=== PATIENT | female | born 1965 | race Caucasian/White ===

== ENCOUNTER 2017-03-18 20:45 | Emergency (ER) | payer OTHER ==
--- NOTE | 2017-03-18 22:58 | RAD ---
INDICATION: Right ankle injury COMPARISON: December 08, 2009 TECHNIQUE: AP, lateral, and oblique views were obtained. FINDINGS: There is no acute fracture. The ankle mortise is intact. There is lateral soft tissue swelling and there are is large plantar calcaneal spur. IMPRESSION: NO ACUTE FRACTURE. LATERAL SOFT TISSUE SWELLING. HEEL SPUR.
--- NOTE | 2017-03-18 23:33 | ED ---
I, Oh,Ja, scribed for Medhat Cabral MD on 03/18/17 at 2333 . Lower Extremity - HPI Summary HPI Summary: This 52 y/o female presents to ED for RLE ankle pain after stepping on a rock and rolling her ankle this afternoon. Positive swelling. Pt states that she heard snapping sound and decided to come into ED when she became concerned about possible fracture. Pt states that she was able to bear some weight with difficulty. Pt was updated with negative ankle X-ray. Plan of care involving splint and discharge is discussed, and pt is at this moment agreeable. - History of Current Complaint Chief Complaint: EDExtremityLower Stated Complaint: RIGHT ANKLE INJURY Time Seen by Provider: 03/18/17 23:24 Hx Obtained From: Patient, Medical Records Hx Last Menstrual Period: 4 MOS AGO Mechanism Of Injury: Blunt Trauma, Twisted Onset of Pain: Immediate Pain Intensity: 5 Pain Scale Used: 0-10 Numeric Location: Is Discrete @ - RLE ankle Character Of Pain: Dull Associated Signs And Symptoms: Positive: Swelling Aggravating Factor(s): Standing Alleviating Factor(s): Rest - Allergies/Home Medications Allergies/Adverse Reactions: Allergies Allergy/AdvReac Type Severity Reaction Status Date / Time Codeine Allergy Severe Hives Verified 02/11/16 19:19 Propoxyphene Allergy Unknown Unknown Verified 02/11/16 19:19 Reaction Details Aspirin AdvReac Severe INTERFERES Verified 02/11/16 19:19 WITH EPILEPSY MEDS PMH/Surg Hx/FS Hx/Imm Hx Endocrine/Hematology History: Reports: Hx Thyroid Disease Cardiovascular History: Denies: Hx Pacemaker/ICD Sensory History: Denies: Hx Hearing Aid Psychiatric History: Reports: Hx Panic Disorder - TAKES EFFEXOR - Surgical History Surgery Procedure, Year, and Place: R SHOULDER ROTATOR CUFF SURGERY 2008,LEFT KNEE SURGERY EARLY , PHENOBARB DEPOSITS REMOVED FROM FINGERS Infectious Disease History: No Infectious Disease History: Denies: Traveled Outside the [place] in Last 30 Days - Family History Known Family History: Positive: Cardiac Disease, Hypertension - Social History Alcohol Use: None Hx Substance Use: No Substance Use Type: Reports: None Hx Tobacco Use: No Smoking Status (MU): Never Smoked Tobacco Review of Systems Negative: Fever Positive: Edema - RLE ankle, Other - RLE ankle pain Positive: Other - abrasion at LLE ankle/lower legs secondary to fall All Other Systems Reviewed And Are Negative: Yes Physical Exam Triage Information Reviewed: Yes Vital Signs On Initial Exam: Initial Vitals Temp Pulse Resp BP Pulse Ox 98.1 F 58 16 143/80 100 03/18/17 20:50 03/18/17 20:50 03/18/17 20:50 03/18/17 20:50 03/18/17 20:50 Vital Signs Reviewed: Yes Appearance: Positive: Well-Appearing, Pain Distress - MILD DISCOMFORT Skin: Positive: Warm Head/Face: Positive: Normal Head/Face Inspection Eyes: Positive: SD ENT: Positive: Hearing grossly normal Respiratory/Lung Sounds: Positive: Breath Sounds Present Musculoskeletal: Positive: Other - RT ANKLE STS LAT MALLEOLUS, NO DEFORMITY, PAIN WITH MOTION Neurological: Positive: Sensory/Motor Intact, NV Bundle Intact Distally Diagnostics - Vital Signs Vital Signs Temp Pulse Resp BP Pulse Ox 03/18/17 23:11 97.8 F 61 18 122/73 100 03/18/17 20:50 98.1 F 58 16 143/80 100 - Laboratory Lab Statement: Any lab studies that have been ordered have been reviewed, and results considered in the medical decision making process. - Radiology X-ray Ankle Xray Interpretation: No Acute Changes - Negative fx. Soft tissue swelling. Heel spur Radiology Interpretation Completed By: Radiologist Lower Extremity Course/Dx - Diagnoses Provider Diagnoses: Ankle sprain Discharge - Discharge Plan Condition: Improved Disposition: HOME Patient Education Materials: Ankle Sprain (ED) Referrals: Rick OSEI,Allyson Fitzgerald [Primary Care Provider] - 2 Days The documentation as recorded by the [facility] accurately reflects the service I personally performed and the decisions made by , Medhat Cabral MD.
[2017-03-18 23:54] VITALS: BP 139/78
== END 2017-03-18 23:52 | disposition home or self-care (01) ==
LOC: ED 20:45
DX: S93.401A Sprain of unspecified ligament of right ankle, initial encounter (principal); Z88.5 Allergy status to narcotic agent; X50.9XXA Other and unspecified overexertion or strenuous movements or postures, initial encounter; Y92.9 Unspecified place or not applicable; F41.0 Panic disorder [episodic paroxysmal anxiety]
CPT/HCPCS: 99282

== ENCOUNTER 2017-06-30 13:58 | Emergency (ER) | payer OTHER ==
[2017-06-30 14:03] VITALS: BP 128/72
[2017-06-30] MEDS ORDERED: Ketorolac INJ* 60 MG/2 ML VIAL IM ONE (14:26)
--- NOTE | 2017-06-30 15:05 | UC ---
Complaint Female HPI - HPI Summary HPI Summary: RIGHT LOW BACK PAIN, INCREASED URINARY FREQUENCY. NO FEVER. NO ABDOMINAL PAIN. PAIN RADIATES TO RIGHT FLANK. HISTORY OF KIDNEY STONES. NO KNOWN TRAUMA. NO BLOOD IN URINE. NO LOSS OF CONTROL OF BLADDER OR BOWELS. - History Of Current Complaint Chief Complaint: UCBackPain Stated Complaint: BACK PAIN Time Seen by Provider: 06/30/17 14:01 Hx Obtained From: Patient, Family/Institute Director Hx Last Menstrual Period: 4 MOS AGO Onset/Duration: Gradual Onset, Lasting Days, Still Present Timing: Intermittent, Lasting Hours Severity Initially: Moderate Severity Currently: Moderate Character: Sharp, Dull, Cramping Aggravating Factor(s): Movement, Urination Associated Signs And Symptoms: Positive: Back Pain. Negative: Vaginal Bleeding/ Discharge, Vaginal Discharge, Nausea, Vomiting(# Of Episodes =), Genital Swelling, Genital Blisters, Retained Foregin Body (Specify) - Risk Factors Ectopic Risk Factor: Negative Ovarian Torsion Risk Factor: Negative - Allergies/Home Medications Allergies/Adverse Reactions: Allergies Allergy/AdvReac Type Severity Reaction Status Date / Time Codeine Allergy Severe Hives Verified 02/11/16 19:19 Propoxyphene Allergy Unknown Unknown Verified 02/11/16 19:19 Reaction Details Aspirin AdvReac Severe INTERFERES Verified 02/11/16 19:19 WITH EPILEPSY MEDS Home Medications: Home Medications Luliconazole [Luzu] 1 % EX 06/30/17 [History] PMH/Surg Hx/FS Hx/Imm Hx Previously Healthy: Yes - Surgical History Surgical History: Yes Surgery Procedure, Year, and Place: R SHOULDER ROTATOR CUFF SURGERY 2008,LEFT KNEE SURGERY EARLY , PHENOBARB DEPOSITS REMOVED FROM FINGERS - Family History Known Family History: Positive: None, Cardiac Disease, Hypertension - Social History Occupation: Employed Full-time Lives: With Family Alcohol Use: None Substance Use Type: None Smoking Status (MU): Never Smoked Tobacco Review of Systems Constitutional: Negative Skin: Negative Eyes: Negative ENT: Negative Respiratory: Negative Cardiovascular: Negative Gastrointestinal: Negative Genitourinary: Frequency, Urgency Motor: Negative Neurovascular: Negative Musculoskeletal: Other: - RIGHT LOW BACK PAIN Neurological: Negative Psychological: Negative All Other Systems Reviewed And Are Negative: Yes Physical Exam Triage Information Reviewed: Yes Appearance: Well-Appearing, No Pain Distress, Well-Nourished, Obese Vital Signs: Initial Vital Signs Temp 96.9 F 06/30/17 13:59 Pulse 59 06/30/17 13:59 Resp 18 06/30/17 13:59 BP 128/72 06/30/17 13:59 Pulse Ox 99 06/30/17 13:59 Vital Signs Reviewed: Yes Eye Exam: Normal ENT Exam: Normal ENT: Positive: Hearing grossly normal Dental Exam: Normal Neck exam: Normal Neck: Positive: Supple, Nontender, No Lymphadenopathy Respiratory Exam: Normal Respiratory: Positive: Chest non-tender, Lungs clear, Normal breath sounds, No respiratory distress Cardiovascular Exam: Normal Cardiovascular: Positive: RRR, No Murmur, Pulses Normal Abdominal Exam: Normal Abdomen Description: Positive: Nontender, No Organomegaly, Soft. Negative: CVA Tenderness (R), CVA Tenderness (L) Musculoskeletal: Positive: Strength Intact, ROM Intact, No Edema, Other: - STRAIGHT LEG RAISE TEST BILATERAL 60 DEGREES Neurological Exam: Normal Psychological Exam: Normal Skin Exam: Normal Complaint Female Dx - Course Course Of Treatment: PATIENT WANTED TO TRY TO TREATMENT FOR UTI CURRENTLY TO SEE IF SYMPTOMS IMPROVE AFTER TREATMENT; WILL FOLLOW UP WITH ED IF FEVER DEVELOPS, IF BACK PAIN WORSENS OR CONTINUES, OR IF NEW SYMPTOMS DEVELOP - Differential Dx/Diagnosis Differential Diagnosis/HQI/PQRI: Appendicitis, Cervicitis, Ovarian Cyst, Pelvic Inflammatory Disease, Renal Colic, Ureteral Stone, Urinary Tract Infection Provider Diagnoses: URINARY TRACT INFECTION Discharge - Discharge Plan Condition: Stable Disposition: HOME Prescriptions: Phenazopyridine TAB* [Pyridium 100 mg TAB*] 100 mg PO TID PRN #12 tab PRN Reason: Pain Sulfamethox/Trimethoprim DS* [Bactrim DS 800/160 TAB*] 1 tab PO BID #10 tab Patient Education Materials: Urinary Tract Infection in Women (ED), Hematuria ( ED) Referrals: Rick OSEI,Allyson Fitzgerald [Primary Care Provider] - Additional Instructions: PLEASE SEEK EVALUATION AT EMERGENCY DEPARTMENT IF FEVER DEVELOPS, IF NEW SYMPTOMS DEVELOP, OR IF BACK PAIN WORSENS OR CONTINUES.
== END 2017-06-30 15:05 | disposition home or self-care (01) ==
LOC: UCEAST 13:58
DX: N39.0 Urinary tract infection, site not specified (principal); Z88.6 Allergy status to analgesic agent; Z88.5 Allergy status to narcotic agent
CPT/HCPCS: 81003; 87086; 96372; 99212; G0463; J1885

== ENCOUNTER 2020-01-09 16:36 | Emergency (ER) | payer MEDICARE ==
--- OUTSIDE RECORDS SUMMARY | 2020-01-09 16:46 | XMS REPORT | Continuity of Care Document ---
:1965 External Reference #:[id number] Author Name Vern Espinoza M.D. 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 Onset: 08/18/2015 Social History Type Date Description Comments Sex Unknown ETOH Use Denies alcohol use Tobacco Use Start: Unknown End: Unknown Patient is a former smoker Smoking Status Reviewed: 12/23/19 Patient is a former smoker Allergies, Adverse Reactions, Alerts Active Allergies Reaction Severity Comments Date Codeine Hives 08/12/2014 Darvon Itching 08/12/2014 Medications Active Medications SIG Qnty Indications Ordering Date Provider Effexor XR 1 by mouth every day 30caps Enriqueta Beckett 01/08/2014 75mg Caps Ghazal Chapa ER 24HR Effexor XR 1 cap by mouth every 30caps Enriqueta Beckett 01/08/2014 37.5mg day Ghazal Chapa Caps ER 24HR Phenobarbital take 2 tablets every 180tabs Vern Fitzgerald 05/21/2013 64.8mg day code c Ghazal Espinoza Tablets Acetazolamide one half of tablet by 135tabs Vern Fitzgerald 05/11/2013 250mg mouth every day. Ghazal Espinoza Tablets Naprosyn twice daily with food 60tabs Yinka 02/28/2012 500mg kenn Gasca M.D. Tablets Polyethylene Glycol as needed Unknown 3350 [id number] Packet Stool Softener once daily Unknown 100mg Capsules Osteo Bi-Flex 1 tab by mouth every Unknown Advanced Triple day Strength Tablets Levalbuterol inhale 2 puffs by Unknown Tartrate mouth every 4 hours 45mcg/Act as needed Aerosol Isosorbide Dinitrate 1 by mouth every day Unknown 30mg Tablets Preservision Areds 2 1 by mouth two times Unknown per day Areds 2 Capsules Prednisone take 4 tabs by mouth Unknown 10mg daily for 2 days then Tablets 3 tabs daily for 2 days then 2 tabs for 2 days then 1 tab for 2 days as need Liquid Calcium With 1 tab bid Unknown D3 Maximum Strength [id number] Capsules Multi Vitamin 1 by mouth every day Unknown Tablets Folic Acid 1 by mouth bid Unknown 1mg Tablets Methotrexate Sodium inject 0.8 Unknown milliliters 50mg/2ML Solution subcutaneously every week (discard open vial after 28 days) Fish Oil 2 by mouth every day Unknown 1200mg Capsules DR Psoriasis Cream prn Unknown Vistaril 1/2 tab po daily 30caps Unknown 25mg Capsules Medications Administered in Office Medication SIG Qnty Indications Ordering Provider Date Depomedrol 40MG Yinka Gasca M.D. 01/31/2012 Injection Immunizations Description No Information Available Vital Signs Date Vital Result Comment 12/23/2019 3:00pm Height 68 inches 5'8" Weight 278.00 lb Heart Rate 62 /min BP Systolic 120 mmHg BP Diastolic 72 mmHg BMI (Body Mass Index) 42.3 kg/m2 12/19/2018 3:51pm Height 68 inches 5'8" Weight 280.00 lb Heart Rate 66 /min BP Systolic 138 mmHg BP Diastolic 88 mmHg BMI (Body Mass Index) 42.6 kg/m2 Results Description No Information Available Procedures Description No Information Available Medical Devices Description No Information Available Encounters Description No Information Available Assessments Date Code Description Provider 12/23/2019 G40.909 Epilepsy, unspecified, not intractable, Vern Espinoza M.D. without status epilepticus 12/23/2019 Z79.899 Other exterminator termite (current) drug therapy Vern Espinoza M.D. 12/23/2019 G25.0 Essential tremor Vern Espinoza M.D. Plan of Treatment 12/23/2019 - Vern Espinoza M.D.G40.909 Epilepsy, unspecified, not intractable, without status [id number] Other exterminator termite (current) drug therapyNew Xrays:Dexa Bone Study, Ordered: 12/23/19Follow up:get last 6 months of lab tests from [facility] YEARG25.0 Essential tremor Functional Status Description No Information Available Mental Status Description No Information Available Referrals Description No Information Available
[2020-01-09 17:17] VITALS: BP 115/67
[2020-01-09 17:51] LABS: Influenza A Molecular POSITIVE (Negative)
--- NOTE | 2020-01-09 17:54 | UC ---
FLU HPI - HPI Summary HPI Summary: C/O 3 day h/o cough, congestion. C/O possible pneumonia. - History of Current Complaint Chief Complaint: UCGeneralIllness Stated Complaint: FLU LIKE SYMPTOMS Time Seen by Provider: 01/09/20 17:37 Hx Obtained From: Patient Hx Last Menstrual Period: 4 MOS AGO ?: No Onset/Duration: Sudden Onset, Lasting Days - 3, Still Present Severity Currently: Moderate Severity Initially: Moderate Pain Intensity: 2 Associated Signs & Symptoms: Positive: Fever, Myalgia, Cough, Sore Throat, Nasal Congestion - Risk Factors Influenza Risk Factors: Chronic Medical or Immunosuppresive Condition - on methotrexate for psoriatic arthritis - Allergy/Home Medications Allergies/Adverse Reactions: Allergies Allergy/AdvReac Type Severity Reaction Status Date / Time codeine Allergy Hives Verified 01/09/20 17:18 propoxyphene Allergy Unknown Verified 01/09/20 17:18 Reaction Details aspirin AdvReac INTERFERES Verified 01/09/20 17:18 WITH EPILEPSY MEDS Home Medications: Home Medications Atorvastatin* [Lipitor 40 MG*] 40 mg PO DAILY 01/09/20 [History Confirmed ] Isosorbide Mononitrate [Isosorbide Mononitrate ER] 30 mg PO DAILY 01/09/20 [ History Confirmed 01/09/20] Methotrexate Sodium/Pf [Methotrexate 50 mg/2 ml Vial] 0.8 ml INJ WEEKLY [History Confirmed 01/09/20] Vit C/E/Zn/Coppr/Lutein/Zeaxan [Preservision Areds 2 Softgel] 1 each PO DAILY [History Confirmed 01/09/20] PMH/Surg Hx/FS Hx/Imm Hx - Additional Past Medical History Additional PMH: Psoriatic arthritis GI/ History: Gastroesophageal Reflux - Surgical History Surgical History: Yes Surgery Procedure, Year, and Place: R SHOULDER ROTATOR CUFF SURGERY 2008,LEFT KNEE SURGERY EARLY , PHENOBARB DEPOSITS REMOVED FROM FINGERS - Family History Known Family History: Positive: None, Cardiac Disease, Hypertension, Diabetes - Social History Occupation: Disabled Lives: With Family Alcohol Use: Rare Substance Use Type: None Smoking Status (MU): Former Smoker Review of Systems All Other Systems Reviewed And Are Negative: Yes Constitutional: Positive: Fever, Chills ENT: Positive: Sore Throat Respiratory: Positive: Shortness Of Breath, Cough Musculoskeletal: Positive: Myalgia Neurological: Positive: Headache Physical Exam Triage Information Reviewed: Yes Appearance: No Pain Distress, Ill-Appearing, Obese Vital Signs: Initial Vital Signs Temp 97.2 F 01/09/20 17:11 Pulse 64 01/09/20 17:11 Resp 18 01/09/20 17:11 BP 115/67 01/09/20 17:11 Pulse Ox 98 01/09/20 17:11 Vital Signs Reviewed: Yes Eyes: Positive: Conjunctiva Inflamed ENT: Positive: Pharynx normal, TMs normal Neck exam: Normal Respiratory: Positive: Wheezing - diffuse mild expiratory wheezes. Negative: Crackles Cardiovascular Exam: Normal Musculoskeletal Exam: Normal Neurological Exam: Normal Psychological Exam: Normal Skin Exam: Normal Flu Course/Dx - Differential Dx/Diagnosis Differential Diagnosis/HQI/PQRI: Bronchitis, Influenza, Pneumonia, Upper Respiratory Infection Provider Diagnosis: Influenza A, Acute bronchospasm Discharge ED - Sign-Out/Discharge Documenting (check all that apply): Patient Departure All imaging exams completed and their final reports reviewed: No Studies - Discharge Plan Condition: Stable Disposition: HOME Prescriptions: predniSONE 20 mg TAB [Deltasone 20 MG TAB*] 60 mg PO DAILY #18 tab Patient Education Materials: Influenza (ED), Bronchospasm (ED) Referrals: Rick OSEI,Allyson Fitzgerald [Primary Care Provider] - Additional Instructions: Start the prednisone tomorrow morning. - Billing Disposition and Condition Condition: STABLE Disposition: Home
[2020-01-09] MEDS ORDERED: Albuterol/Ipratropium NEB.SOL* Albuterol 2.5 MG/Ipratropium 0.5 MG 3 ML INH ONE (17:56)
== END 2020-01-09 18:29 | disposition home or self-care (01) ==
LOC: UCEAST 16:36
DX: J10.1 Influenza due to other identified influenza virus with other respiratory manifestations (principal); J98.01 Acute bronchospasm; L40.50 Arthropathic psoriasis, unspecified; Z88.5 Allergy status to narcotic agent; Z88.6 Allergy status to analgesic agent; Z87.891 Personal history of nicotine dependence
CPT/HCPCS: 99212; A9270-GY; G0463

== ENCOUNTER 2020-02-09 20:08 | Emergency (ER) | payer MEDICARE ==
[2020-02-09 20:20] VITALS: BP 116/70
[2020-02-09] MEDS ORDERED: DOXYcycline CAP(*) 100 MG PO ONE (21:21)
--- NOTE | 2020-02-09 21:22 | UC ---
Skin Complaint HPI - HPI Summary HPI Summary: 55-year-old woman comes in with a chief complaint of skin infection on her right lower abdomen. Started several days ago is been getting worse. She put drawing sounds on it and that did improve with some but there's been no drainage. No fevers no chills. Feels well otherwise. - History of Current Complaint Chief Complaint: UCSkin Time Seen by Provider: 02/09/20 21:13 Stated Complaint: SKIN ISSUE Hx Last Menstrual Period: 4 MOS AGO Pain Intensity: 0 - Allergy/Home Medications Allergies/Adverse Reactions: Allergies Allergy/AdvReac Type Severity Reaction Status Date / Time codeine Allergy Hives Verified 02/09/20 20:20 propoxyphene Allergy Unknown Verified 02/09/20 20:20 Reaction Details aspirin AdvReac INTERFERES Verified 02/09/20 20:20 WITH EPILEPSY MEDS Home Medications: Home Medications Naproxen TAB* [Naprosyn 250 mg TAB*] 500 mg PO Q8H PRN 10/19/14 [History Confirmed 02/09/20] PHENobarbital TAB(*) 129.6 mg PO DAILY 10/19/14 [History Confirmed 02/09/20] Venlafaxine EXT RELEASE CAP* [Effexor Xr CAP*] 37.5 mg PO DAILY 10/19/14 [ History Confirmed 02/09/20] Venlafaxine EXT RELEASE CAP* [Effexor Xr CAP*] 75 mg PO DAILY 10/19/14 [History Confirmed 02/09/20] acetaZOLAMIDE TAB* [Diamox Tab*] 125 mg PO DAILY 10/19/14 [History Confirmed 09/20] Atorvastatin* [Lipitor 40 MG*] 40 mg PO DAILY 01/09/20 [History Confirmed ] Isosorbide Mononitrate [Isosorbide Mononitrate ER] 30 mg PO DAILY 01/09/20 [ History Confirmed 02/09/20] DOXYcycline CAP(*) [DOXYcycline 100MG CAP(*)] 100 mg PO BID #19 cap 02/09/20 [Rx ] hydrOXYzine HCL [Hydroxyzine HCl] 12.5 mg PO DAILY 02/09/20 [History Confirmed 02/09/20] PMH/Surg Hx/FS Hx/Imm Hx Previously Healthy: Yes Endocrine History: Dyslipidemia Cardiovascular History: Hypertension - Surgical History Surgical History: Yes Surgery Procedure, Year, and Place: R SHOULDER ROTATOR CUFF SURGERY 2009. LEFT KNEE SURGERY EARLY . PHENOBARB DEPOSITS REMOVED FROM FINGERS. RT 4TH FINGER - Family History Known Family History: Positive: None, Cardiac Disease, Hypertension, Diabetes - Social History Alcohol Use: Rare Substance Use Type: None Smoking Status (MU): Former Smoker Review of Systems All Other Systems Reviewed And Are Negative: Yes Constitutional: Positive: Negative Skin: Positive: Other - SEE HPI Eyes: Positive: Negative ENT: Positive: Negative Respiratory: Positive: Negative Cardiovascular: Positive: Negative Gastrointestinal: Positive: Negative Motor: Positive: Negative Neurovascular: Positive: Negative Musculoskeletal: Positive: Negative Neurological/Mental Status: Positive: Negative Psychological: Positive: Negative Is Patient Immunocompromised?: No Physical Exam Triage Information Reviewed: Yes Appearance: Well-Appearing, No Pain Distress, Well-Nourished Vital Signs: Initial Vital Signs Temp 97.6 F 02/09/20 20:11 Pulse 55 02/09/20 20:11 Resp 16 02/09/20 20:11 BP 116/70 02/09/20 20:11 Pulse Ox 100 02/09/20 20:11 Vital Signs Reviewed: Yes Eye Exam: Normal Eyes: Positive: Conjunctiva Clear Neck: Positive: Supple Respiratory: Positive: No respiratory distress Musculoskeletal: Positive: Strength Intact, ROM Intact Neurological: Positive: Alert, Muscle Tone Normal Psychological: Positive: Age Appropriate Behavior Skin: Positive: Other - Right lower abdomen skin erythema about 3-1/2 cm in diameter with slight fluctuance in the center of about a half a centimeter. No drainage. Course/Dx - Course Course Of Treatment: The size of the area of fluctuance did not lend itself to successful incision and drainage. We'll treat with doxycycline continue the drawing salves and get reevaluated if worse or not improving. - Diagnoses Provider Diagnosis: Cellulitis of right abdominal wall Discharge ED - Sign-Out/Discharge Documenting (check all that apply): Patient Departure All imaging exams completed and their final reports reviewed: No Studies - Discharge Plan Condition: Stable Disposition: HOME Prescriptions: DOXYcycline CAP(*) [DOXYcycline 100MG CAP(*)] 100 mg PO BID #19 cap Patient Education Materials: Cellulitis (ED), Abscess (ED) Referrals: Rick OSEI,Allyson Fitzgerald [Primary Care Provider] - Additional Instructions: FOLLOW UP WITH YOUR DOCTOR IF NOT COMPLETELY IMPROVED. GET REEVALUATED SOONER IF NOT IMPROVED OR WORSE OR ANY QUESTIONS OR CONCERNS. - Billing Disposition and Condition Condition: STABLE Disposition: Home
== END 2020-02-09 21:25 | disposition home or self-care (01) ==
LOC: UCEAST 20:08
DX: L03.311 Cellulitis of abdominal wall (principal); I10 Essential (primary) hypertension; E78.5 Hyperlipidemia, unspecified; Z88.5 Allergy status to narcotic agent; Z88.8 Allergy status to other drugs, medicaments and biological substances; Z79.899 Other long term (current) drug therapy; Z87.891 Personal history of nicotine dependence
CPT/HCPCS: 99212; A9270-GY; G0463